=== PATIENT | male | born 1955 | race Caucasian/White ===

== ENCOUNTER → 2025-02-06 15:43 | Outpatient (CLI) | payer MEDICARE, MEDICAID, SELFPAY | LOC: WC 15:51 | PROVIDERS: Family Provider Family Medicine; PCP Family Medicine; Referring Provider Nurse Practitioner Family; Visit Provider Surgery | DX: E11.621 Type 2 diabetes mellitus with foot ulcer (principal); L97.512 Non-pressure chronic ulcer of other part of right foot with fat layer exposed; E11.42 Type 2 diabetes mellitus with diabetic polyneuropathy; I73.9 Peripheral vascular disease, unspecified; L84 Corns and callosities; F17.200 Nicotine dependence, unspecified, uncomplicated | CPT/HCPCS: 11042; 87070; 87075; 87077; 87186; 87205; 99204; 99214 ==

== ENCOUNTER → 2025-02-08 11:14 | Outpatient (CLI) | payer MEDICARE, MEDICAID, SELFPAY | PROVIDERS: Family Provider Family Medicine; PCP Family Medicine; Referring Provider Family Medicine; Visit Provider Surgery | DX: E11.621 Type 2 diabetes mellitus with foot ulcer (principal); L97.512 Non-pressure chronic ulcer of other part of right foot with fat layer exposed; L84 Corns and callosities | CPT/HCPCS: 99213 ==

== ENCOUNTER → 2025-02-09 14:34 | Outpatient (CLI) | payer MEDICARE, MEDICAID, SELFPAY | PROVIDERS: Family Provider Family Medicine; PCP Family Medicine; Referring Provider Family Medicine; Visit Provider Physician Assistant | DX: E11.621 Type 2 diabetes mellitus with foot ulcer (principal); L97.412 Non-pressure chronic ulcer of right heel and midfoot with fat layer exposed; L84 Corns and callosities | CPT/HCPCS: 99212 ==

== ENCOUNTER → 2025-02-12 12:00 | Outpatient (CLI) | payer MEDICARE, MEDICAID, SELFPAY ==
--- NOTE | 2025-02-12 12:12 | DI.RAD.S_ITS ---
PROCEDURE: XR FOOT RT MIN 3V INDICATIONS: eval for osteo, wound right foot TECHNIQUE: 3 views of the foot were acquired. COMPARISON: None. 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 Moderate degenerative changes tibiotalar, talonavicular, calcaneocuboid joints. Accessory ossicle on the lateral image adjacent to the cuboid commonly os peroneum or os cuboid M. 5 mm inferior calcaneal enthesophyte calcification. No gross radiographic evidence of osseous erosion or soft tissue gas to suggest osteomyelitis. No radiographic evidence of fracture or dislocation. Artifacts from overlying clothing or other extrinsic artifacts partially limit radiographic detail. IMPRESSION: Status post transmetatarsal amputation. Degenerative changes. No gross radiographic evidence of osseous erosion. If symptoms persist or worsen, or there is high clinical suspicion of osteomyelitis or other abnormality MRI could be performed Dictated by: Emerson Hill M.D. on 02/13/2025 at 12:56 Approved by: Emerson Hill M.D. on 02/13/2025 at 13:00
[2025-02-12 13:37] LABS: Add Manual Diff / Slide Review NO; Hematocrit 48.3 % (41-53); Hemoglobin 16.8 g/dL (13.5-17.5); Lymphocytes Absolute Auto 1900 /uL (1100-4500); Mean Corpuscular HGB Conc 34.8 % (30-36); Mean Corpuscular Hemoglobin 31.9 PG (26-34); Mean Corpuscular Volume 91.7 fL (80-100); Platelet Count 279 X10^3/uL (150-400)
[2025-02-12 13:47] LABS: Hemoglobin A1C% w Est Avg Glu 9.7 % (4.0-6.0)
[2025-02-12 14:07] LABS: Alanine Aminotransferase 71 IU/L (<50); Albumin 4.7 g/dL (3.5-5.0); Alkaline Phosphatase 112 U/L (38-126); Blood Urea Nitrogen 28 mg/dL (9-20); Carbon Dioxide 26 mmol/L (22-32); Chloride 100 mmol/L (98-107); Estimated Glomerular Filt Rate > 60 mL/min (>60); Glucose 182 mg/dL (70-99); HEMOLYSIS < 15 (0-50); Sodium 139 mmol/L (137-145)
[2025-02-12 14:09] LABS: Potassium 5.4 mmol/L (3.4-5.1)
[2025-02-12 14:13] LABS: Calcium 13.8 mg/dL (8.4-10.2)
[2025-02-12 14:21] LABS: Albumin Globulin Ratio 1.5 (1.0-2.8); Globulin 3.1 g/dL (1.7-4.1); Total Protein 7.8 g/dL (6.3-8.2)
== END ==
PROVIDERS: Family Provider Family Medicine; PCP Family Medicine; Referring Provider Surgery; Visit Provider Surgery
DX: E11.621 Type 2 diabetes mellitus with foot ulcer (principal); Z89.421 Acquired absence of other right toe(s)
CPT/HCPCS: 36415; 73630; 80053; 83036; 85025; 85651; 86140

== ENCOUNTER → 2025-02-12 12:00 | Outpatient (CLI) | payer MEDICARE, MEDICAID, SELFPAY | LOC: WC 12:02 | PROVIDERS: Family Provider Family Medicine; PCP Family Medicine; Referring Provider Family Medicine; Visit Provider Surgery | DX: E11.621 Type 2 diabetes mellitus with foot ulcer (principal); L97.412 Non-pressure chronic ulcer of right heel and midfoot with fat layer exposed; L84 Corns and callosities; E11.51 Type 2 diabetes mellitus with diabetic peripheral angiopathy without gangrene | CPT/HCPCS: 99212 ==

== ENCOUNTER 2025-02-12 16:09 | Observation (INO) | payer MEDICARE, MEDICAID, SELFPAY ==
[2025-02-12] VITALS (9 sets, daily range): BP systolic 129–155; BP diastolic 77–88; PULSE 65–118; RESP 20; TEMP 36.7; O2SAT 88–95; BMI 23.8
--- NOTE | 2025-02-12 17:01 | EKG_ITS ---
[address] [address] Test Date: 2025-02-12 Pat Name: Berlin Liang Department: [facility] Room: Gender: Male Rn Neonatal: IRMA : 1955 Requested By: Order Number: [id number] Reading MD: Nash Juarez Measurements Intervals [place] Rate: 111 P: 59 TN: 212 QRS: 38 QRSD: 74 T: 39 QT: 302 QTc: 410 Interpretive Statements Sinus tachycardia with 1st degree AV block Possible Inferior infarct , age undetermined Electronically Signed On 02-12-2025 18:55:52 PST by Nash Juarez
[2025-02-12 17:39] LABS: Add Manual Diff / Slide Review NO; Hematocrit 50.3 % (41-53); Hemoglobin 17.3 g/dL (13.5-17.5); Lymphocytes Absolute Auto 2500 /uL (1100-4500); Mean Corpuscular HGB Conc 34.4 % (30-36); Mean Corpuscular Hemoglobin 31.4 PG (26-34); Mean Corpuscular Volume 91.3 fL (80-100); Platelet Count 298 X10^3/uL (150-400)
[2025-02-12 17:53] LABS: Alanine Aminotransferase 76 IU/L (<50); Albumin 5.0 g/dL (3.5-5.0); Albumin Globulin Ratio 1.4 (1.0-2.8); Alkaline Phosphatase 106 U/L (38-126); Blood Urea Nitrogen 31 mg/dL (9-20); Carbon Dioxide 26 mmol/L (22-32); Chloride 100 mmol/L (98-107); Estimated Glomerular Filt Rate > 60 mL/min (>60); Globulin 3.5 g/dL (1.7-4.1); Glucose 176 mg/dL (70-99); HEMOLYSIS 15 (0-50); Potassium 4.7 mmol/L (3.4-5.1); Sodium 139 mmol/L (137-145); Total Protein 8.5 g/dL (6.3-8.2)
--- NOTE | 2025-02-12 17:59 | ED_ITS ---
HPI - Weakness General Chief complaint: Weakness Stated complaint: pc sent high bp Time Seen by Provider: 02/12/25 17:46 Source: patient Mode of arrival: Family Vehicle History of Present Illness HPI Narrative: This 69-year-old white male sent from a SNF because of abnormal labs. The patient himself has no acute complaints velocity of chronic complaints. Related Data Allergies Allergy/AdvReac Type Severity Reaction Status Date / Time No Known Drug Allergies Allergy Verified 02/12/25 16:36 Review of Systems Review of Systems Narrative: GENERAL: Denies chills, fatigue, malaise, fever, sweats. HEENT: Denies sinus pain, ear pain, sore throat, difficulty swallowing, dizziness. RESPIRATORY: Denies dyspnea, cough, wheezing, hemoptysis, sputum. CARDIOVASCULAR: Denies chest pain, palpitations, orthopnea, edema, GASTROINTESTINAL: Denies nausea, vomiting, abdominal pain, diarrhea, constipation, melena. : Denies dysuria, frequency, incontinence, hematuria, urinary retention. MUSCULOSKELETAL: denies weakness, joint pain, or bony pain SKIN: Denies rash, skin lesions, or other NEUROLOGIC: Denies weakness, headache, numbness, change in speech, confusion, seizures, incoordination. PSYCHIATRIC: No concerning psychosocial issues. 12 point review of systems is negative except for those stated above Patient History Social History Smoking Status: Current every day smoker Smoking Status: Current every day smoker tobacco type: cigarettes Exam Narrative Exam Narrative: GENERAL: 69 year old patient appears stated age. Well-developed patient, in mild distress. HEAD: Atraumatic. Normocephalic. EYES: Pupils equal round and reactive. Extraocular motions intact. No scleral icterus. No injection or drainage. ENT: Nose without bleeding, purulent drainage. Throat without erythema, tonsillar hypertrophy or exudate. Airway patent. NECK: Trachea midline. Non tender CARDIOVASCULAR: Regular rate and rhythm without murmurs, gallops, or rubs. RESPIRATORY: Clear to auscultation. Breath sounds equal bilaterally. No wheezes, rales, or rhonchi. GASTROINTESTINAL: Abdomen soft, non-tender, nondistended. EXTREMITIES: No edema or joint tenderness. BACK: Nontender without deformity or crepitance. No flank tenderness. NEURO: AOx3. SKIN: No rash or erythema of visible areas Initial Vital Signs Initial Vital Signs: Vital Signs Temperature 98.1 F 02/12/25 16:35 Pulse Rate 118 H 02/12/25 16:35 Respiratory Rate 20 02/12/25 16:35 Blood Pressure 129/77 02/12/25 16:35 Pulse Oximetry 95 02/12/25 16:35 Oxygen Delivery Method Room Air 02/12/25 16:35 Course Orders Ordered: ED Orders 02/12/25 17:01 EKG-12 Lead Stat 02/12/25 17:28 CBC Auto Diff [Complete Blood Count AUTO DIFF] Stat CMP [Comprehensive Metabolic Panel] Stat 02/12/25 17:58 Urinalysis and Microscopic Stat Lactated Ringer's (Lactated Ringers) 1,000 mls @ 1,000 mls/hr IV BOLUS ONE Stop: 02/12/25 18:58 Last Admin: 02/12/25 18:16 Dose: 1,000 mls/hr Lactated Ringer's (Lactated Ringers) 1,000 mls @ 1,000 mls/hr IV BOLUS ONE Stop: 02/12/25 19:11 Vital Signs Vital signs: Vital Signs - 8 hr 02/12/25 16:35 Temperature 98.1 F Pulse Rate 118 H Respiratory Rate 20 Blood Pressure 129/77 Pulse Oximetry 95 Oxygen Delivery Method Room Air MDM - Weakness Lab Data 02/12/25 17:28 02/12/25 17:28 Labs: Lab Results 02/12/25 Range/Units 17:28 WBC 11.0 (4.5-11.0) X10^3/uL RBC 5.51 (4.5-5.9) X10^6/uL Hgb 17.3 (13.5-17.5) g/dL Hct 50.3 (41-53) % MCV 91.3 (80-100) fL MCH 31.4 (26-34) PG MCHC 34.4 (30-36) % RDW 12.5 (11.6-14.8) % Plt Count 298 (150-400) X10^3/uL Neut % (Auto) 67.6 (50-75) % Lymph % (Auto) 23.0 L (25-40) % [place] % (Auto) 6.9 (3-14) % Eos % (Auto) 1.5 L (2-4) % Baso % (Auto) 1.0 (0-2) % Neut # (Auto) 7400 H (1581-5892) /uL Lymph # (Auto) 2500 (4547-3302) /uL [place] # (Auto) 800 (0-900) /uL Eos # (Auto) 200 (0-450) /uL Baso # (Auto) 100 (0-100) /uL Sodium 139 (137-145) mmol/L Potassium 4.7 (3.4-5.1) mmol/L Chloride 100 (98-107) mmol/L Carbon Dioxide 26 (22-32) mmol/L BUN 31 H (9-20) mg/dL Creatinine 1.25 (0.66-1.25) mg/dL Estimated GFR > 60 (>60) mL/min BUN/Creatinine Ratio 24.8 H (6-22) Glucose 176 H (70-99) mg/dL Calcium 14.3 H* (8.4-10.2) mg/dL Total Bilirubin 0.8 (0.2-1.3) mg/dL AST 62 H (17-59) IU/L ALT 76 H (<50) IU/L Alkaline Phosphatase 106 (38-126) U/L Total Protein 8.5 H (6.3-8.2) g/dL Albumin 5.0 (3.5-5.0) g/dL Globulin 3.5 (1.7-4.1) g/dL Albumin/Globulin Ratio 1.4 (1.0-2.8) MDM Narrative Medical decision making narrative: Patient had 12 lead EKG reveals sinus tachycardia at 111 beats per minute with a borderline first-degree AV block normal axis no blocks no acute changes no prolonged QTC. Patient had a CBC unremarkable white count 11.0 hemoglobin 17.3. Chemistry was remarkable for a glucose of 176 and a calcium of 14.3. In the emergency room patient was ordered 2 L of Ringer's lactate. The patient does have a calcium before T with a normal albumin and because they [facility] the [facility] the patient will have to be admitted for observation for fluid hydration and probable starting a bisphosphonate therapy I will speak to the hospitalist who admit the patient. Discharge Plan Departure Patient Disposition: Admitted as Observation Clinical Impression: Hypercalcemia, Generalized weakness, Dehydration
[2025-02-12 18:01] LABS: Calcium 14.3 mg/dL (8.4-10.2)
[2025-02-12] MEDS: LACTATED RINGERS 1,000 ML 1000 ML IV ×2 (18:16→20:14)
--- NOTE | 2025-02-12 18:57 | P.HP_ITS ---
History of Present Illness History of Present Illness Date Patient Seen: 02/12/25 Time Patient Seen: 18:57 Chief complaint: pc sent high bp Narrative: This is a 69-year-old male with diabetes mellitus, dementia, hypertension, seizure disorder and bladder cancer who presents with an asymptomatic calcium level of 14.3. He says that he just moved from [place] a few days ago to live at a local assisted living facility and was found on routine labs to have a high potassium and high calcium. In our ED the potassium is 4.7 and the calcium is 14.3. He is at baseline on 25 mcg of cholecalciferol daily along with 1000 mg of calcium carbonate daily. He has significant dementia, and is only oriented to his name, but does not think that he has ever been treated for or admitted for hypercalcemia before. His EKG does not show any significant changes. He will be receiving IV fluid and a follow up potassium/calcium level this evening. Assessment and plan: Hypercalcemia, present on admission. Active. -presenting calcium level of 14.3 likely related to daily vitamin-D/calcium supplementation. -begin treatment with IV fluid initially 1 L bolus and then 150 mL per hour of normal saline with follow up calcium level in 3 hours. -if calcium does not come down with initial treatment and holding the daily supplements then further treatment including pamidronate and further workup to rule out MM would be appropriate. Diabetes mellitus type 2, present on admission. Chronic. -lispro medium dose correctional scale -holding Lyumjev 25 units q.i.d. -continue Lantus 60 units q.a.m. -check A1c Hypertension, present on admission. Chronic. -lisinopril Hyperlipidemia, present on admission. Chronic. -Lipitor Seizure disorder, present on admission. Chronic. -continue Keppra Dementia, present on admission. Chronic. SCD for DVT prevention His sister is his apparent backup decision maker. [facility] Medical History (Updated 02/12/25 @ 19:07 by Olive Juarez MD) Osteoarthritis Dementia HLD (hyperlipidemia) HTN (hypertension) Diabetes mellitus Seizure Surgical History (Updated 02/12/25 @ 19:08 by Olive Juarez MD) History of transmetatarsal amputation of right foot Social History Smoking Status: Current every day smoker Comment: Significant dementia and lack of records from his facility limit social history and family history. Medication list: Cholecalciferol 25 mcg daily Loratadine 10 mg daily Magnesium glycinate 120 mg daily Meloxicam 7.5 mg daily Lisinopril 20 mg daily Levetiracetam 500 mg twice a day Doxycycline 100 mg twice a day Docusate 100 mg twice a day Benefiber 1 tablet daily Calcium carbonate 500 mg 2 tabs daily Lipitor 10 mg daily Lyumjev quick pen 25 units q.i.d. Lantus Solostar 60 units q.a.m. Meds Home Medications and Allergies Allergies Allergy/AdvReac Type Severity Reaction Status Date / Time No Known Drug Allergies Allergy Verified 02/12/25 16:36 Review of Systems Review of Systems Narrative: Positive for Memory loss and weakness Negative for fevers, chills, sweats, nausea, vomiting, abdominal pain, chest pain, coughing, dysuria, bleeding, rash. Exam Vital Signs (past 8 hours): - 02/12/25 16:35 Temperature 98.1 F Pulse Rate 118 H Respiratory Rate 20 Blood Pressure 129/77 Pulse Oximetry 95 Oxygen Delivery Method Room Air Oxygen Delivery Method Room Air Narrative Exam Narrative: He is alert and oriented to his name. He is unable to reliably discuss any further historical information. He readily admits that his memory is very poor. No apparent distress. Pupils are equally round reactive to light and accommodation. Extraocular muscles are intact. Sclerae are pink and nonicteric. Throat looks normal. No lymph nodes are felt head, neck, supraclavicular area. There is no thyromegaly. JVD is less than 6 cm. No carotid bruits heard. Heart is regular rate and rhythm without murmur. Lungs are clear to auscultation bilaterally. Abdomen is soft, bowel sounds positive, nontender, no organomegaly. Extremities have no ankle edema. Neurologic exam. Patient is very confused. Cranial nerves 2-12 test intact. Motor function is 4/5 throughout. There is no tremor. Skin has no rash. Objective Labs 02/12/25 17:28 02/12/25 17:28 Labs: Laboratory Results - last 24 hr 02/12/25 17:28 WBC 11.0 RBC 5.51 Hgb 17.3 Hct 50.3 MCV 91.3 MCH 31.4 MCHC 34.4 RDW 12.5 Plt Count 298 Neut % (Auto) 67.6 Lymph % (Auto) 23.0 L [place] % (Auto) 6.9 Eos % (Auto) 1.5 L Baso % (Auto) 1.0 Neut # (Auto) 7400 H Lymph # (Auto) 2500 [place] # (Auto) 800 Eos # (Auto) 200 Baso # (Auto) 100 Sodium 139 Potassium 4.7 Chloride 100 Carbon Dioxide 26 BUN 31 H Creatinine 1.25 Estimated GFR > 60 BUN/Creatinine Ratio 24.8 H Glucose 176 H Calcium 14.3 H* Total Bilirubin 0.8 AST 62 H ALT 76 H Alkaline Phosphatase 106 Total Protein 8.5 H Albumin 5.0 Globulin 3.5 Albumin/Globulin Ratio 1.4 Assessment & Plan Time-Based Coding :: [TOTAL MINUTES] spent with patient and on the chart (including review of chart, obtaining history, exam, reviewing outside data, placing orders, documenting exam and treatment plan, and counseling patient) on [DATE].
--- NOTE | 2025-02-12 19:41 | W.PC.EDHO ---
Report received from LISETTE Russo
[2025-02-12] MEDS: ATORVASTATIN 20 MG TABLET 10 MG PO (20:12)
[2025-02-12] MEDS: PANTOPRAZOLE DR 20 MG TABLET 40 MG PO (20:13)
--- NOTE | 2025-02-12 21:12 | PC.NURSE ---
Pt complains of bed and requests hospital bed. Steve contacted. No hospital beds available per Steve.
[2025-02-12] MEDS: SODIUM CHLORIDE 0.9% 1,000 ML 150 ML IV (23:57)
[2025-02-13] VITALS (11 sets, daily range): BP systolic 122–142; BP diastolic 60–80; PULSE 84–107; RESP 18; TEMP 36.8; O2SAT 88–100
[2025-02-13 03:32] LABS: Appearance Urine UA CLEAR; Bilirubin Urine UA NEGATIVE (NEGATIVE); Color Urine UA YELLOW; Glucose Urine UA NEGATIVE (Negative); Ketones Urine UA TRACE (NEGATIVE); Leukocyte Esterase Urine UA NEGATIVE (NEGATIVE); Nitrite Urine UA NEGATIVE (Negative); Occult Blood Urine UA 1+ (Negative); Protein Urine UA 1+ (Negative); Specific Gravity Urine UA 1.015 (1.000-1.035); Urobilinogen Urine UA 0.2 E.U./dL (0.2); pH Urine UA 7.0 (4.5-8.0)
[2025-02-13 04:09] LABS: Culture Indicated Urine Cult Not Indicated
--- NOTE | 2025-02-13 06:32 | PM.PN.1 ---
Subjective Subjective Date Patient Seen: 02/13/25 Interval history: This is a 69-year-old male with diabetes mellitus, dementia, hypertension, seizure disorder and bladder cancer who presents with an asymptomatic calcium level of 14.3. He says that he just moved from [place] a few days ago to live at a local assisted living facility and was found on routine labs to have a high potassium and high calcium. In our ED the potassium is 4.7 and the calcium is 14.3. He is at baseline on 25 mcg of cholecalciferol daily along with 1000 mg of calcium carbonate daily. He has significant dementia, and is only oriented to his name, but does not think that he has ever been treated for or admitted for hypercalcemia before. His EKG does not show any significant changes. He will be receiving IV fluid and a follow up potassium/calcium level this evening. Assessment and plan: Hypercalcemia, present on admission. Active. -presenting calcium level of 14.3 likely related to daily vitamin-D/calcium supplementation. -begin treatment with IV fluid initially 1 L bolus and then 150 mL per hour of normal saline with follow up calcium level in 3 hours. -if calcium does not come down with initial treatment and holding the daily supplements then further treatment including pamidronate and further workup to rule out MM would be appropriate. Diabetes mellitus type 2, present on admission. Chronic. -lispro medium dose correctional scale -holding Lyumjev 25 units q.i.d. -continue Lantus 60 units q.a.m. -check A1c Hypertension, present on admission. Chronic. -lisinopril Hyperlipidemia, present on admission. Chronic. -Lipitor Seizure disorder, present on admission. Chronic. -continue Keppra Dementia, present on admission. Chronic. SCD for DVT prevention His sister is his apparent backup decision maker. Exam Vital Signs (past 8 hours): - 02/13/25 00:02 02/13/25 00:03 02/13/25 00:03 Temperature Pulse Rate 107 H 104 H Respiratory Rate Blood Pressure 142/80 H Pulse Oximetry 94 93 Oxygen Delivery Method Room Air Room Air 02/13/25 00:07 02/13/25 00:30 02/13/25 00:30 Temperature 98.2 F Pulse Rate 102 H 101 H Respiratory Rate 18 Blood Pressure 142/80 H 122/60 Pulse Oximetry 94 88 L Oxygen Delivery Method Room Air 02/13/25 01:00 02/13/25 03:17 02/13/25 03:42 Temperature Pulse Rate 92 H Respiratory Rate Blood Pressure Pulse Oximetry 97 100 91 Oxygen Delivery Method Room Air Room Air Room Air 02/13/25 04:00 02/13/25 04:30 02/13/25 05:17 Temperature Pulse Rate 87 84 97 H Respiratory Rate Blood Pressure Pulse Oximetry 91 93 91 Oxygen Delivery Method Room Air Room Air Room Air 02/13/25 05:18 02/13/25 05:18 Temperature Pulse Rate 96 H Respiratory Rate Blood Pressure 129/73 Pulse Oximetry 91 Oxygen Delivery Method Room Air Oxygen Delivery Method Room Air Objective Labs 02/12/25 17:28 02/13/25 06:30 Labs: Laboratory Results - last 24 hr 02/12/25 02/12/25 02/13/25 17:28 20:36 01:30 WBC 11.0 RBC 5.51 Hgb 17.3 Hct 50.3 MCV 91.3 MCH 31.4 MCHC 34.4 RDW 12.5 Plt Count 298 Neut % (Auto) 67.6 Lymph % (Auto) 23.0 L [place] % (Auto) 6.9 Eos % (Auto) 1.5 L Baso % (Auto) 1.0 Neut # (Auto) 7400 H Lymph # (Auto) 2500 [place] # (Auto) 800 Eos # (Auto) 200 Baso # (Auto) 100 Sodium 139 Potassium 4.7 Chloride 100 Carbon Dioxide 26 BUN 31 H Creatinine 1.25 Estimated GFR > 60 BUN/Creatinine Ratio 24.8 H Glucose 176 H POC Whole Bld Glucose 108 H Calcium 14.3 H* Total Bilirubin 0.8 AST 62 H ALT 76 H Alkaline Phosphatase 106 Total Protein 8.5 H Albumin 5.0 Globulin 3.5 Albumin/Globulin Ratio 1.4 Urine Color Yellow Urine Appearance Clear Urine pH 7.0 Ur Specific [place] 1.015 Urine Protein 1+ H Urine Glucose (UA) Negative Urine Ketones Trace H Urine Occult Blood 1+ H Urine Nitrate Negative Urine Bilirubin Negative Urine Urobilinogen 0.2 Ur Leukocyte Esterase Negative Urine RBC 1-5/hpf Urine WBC 0-1/hpf Ur Squamous Epith Cells None seen Urine Bacteria None seen Ur Culture Indicated? Cult not indicated Vol Urine Centrifuged 10ml (spun) [facility] Medical History (Updated 02/12/25 @ 19:07 by Olive Juarez MD) Osteoarthritis Dementia HLD (hyperlipidemia) HTN (hypertension) Diabetes mellitus Seizure Surgical History (Updated 02/12/25 @ 19:08 by Olive Juarez MD) History of transmetatarsal amputation of right foot Social History Smoking Status: Current every day smoker Assessment & Plan Time-Based Coding :: [TOTAL MINUTES] spent with patient and on the chart (including review of chart, obtaining history, exam, reviewing outside data, placing orders, documenting exam and treatment plan, and counseling patient) on [DATE].
[2025-02-13 06:48] LABS: Blood Urea Nitrogen 29 mg/dL (9-20); Carbon Dioxide 31 mmol/L (22-32); Chloride 100 mmol/L (98-107); Estimated Glomerular Filt Rate > 60 mL/min (>60); Glucose 106 mg/dL (70-99); HEMOLYSIS 19 (0-50); Potassium 4.5 mmol/L (3.4-5.1); Sodium 140 mmol/L (137-145)
[2025-02-13 06:54] LABS: Calcium 13.4 mg/dL (8.4-10.2)
--- NOTE | 2025-02-13 06:55 | ED.CALLS ---
Critical Calcium 13.4 (from 02/12/25 @2100) just called in from lab. Dr. Johnson notified.
[2025-02-13 07:20] LABS: Alanine Aminotransferase 49 IU/L (<50); Albumin 3.6 g/dL (3.5-5.0); Albumin Globulin Ratio 1.3 (1.0-2.8); Alkaline Phosphatase 76 U/L (38-126); Blood Urea Nitrogen 26 mg/dL (9-20); Calcium 11.6 mg/dL (8.4-10.2); Carbon Dioxide 28 mmol/L (22-32); Chloride 104 mmol/L (98-107); Estimated Glomerular Filt Rate > 60 mL/min (>60); Globulin 2.8 g/dL (1.7-4.1); Glucose 141 mg/dL (70-99); HEMOLYSIS 15 (0-50); Potassium 4.4 mmol/L (3.4-5.1); Sodium 139 mmol/L (137-145); Total Protein 6.4 g/dL (6.3-8.2)
[2025-02-13] MEDS: NICOTINE 21 MG PATCH TOP (08:42)
[2025-02-13] MEDS: INSULIN GLARGINE 100 UNIT/ML 3ML PEN 60 UNIT SUBCUT (09:23)
[2025-02-13] MEDS: INSULIN LISPRO 100 UNIT/ML 3ML VIAL 8 UNIT SUBCUT (10:42)
--- NOTE | 2025-02-13 10:45 | P.DS_ITS ---
History of Present Illness History of Present Illness Date Patient Seen: 02/13/25 Time Patient Seen: 10:45 Chief complaint: pc sent high bp Narrative: This is a 69-year-old male with diabetes mellitus, dementia, hypertension, seizure disorder and bladder cancer who presents with an asymptomatic calcium level of 14.3. He says that he just moved from [place] a few days ago to live at a local assisted living facility and was found on routine labs to have a high potassium and high calcium. In our ED the potassium is 4.7 and the calcium is 14.3. He is at baseline on 25 mcg of cholecalciferol daily along with 1000 mg of calcium carbonate daily. He has significant dementia, and is only oriented to his name, but does not think that he has ever been treated for or admitted for hypercalcemia before. His EKG does not show any significant changes. He will be receiving IV fluid and a follow up potassium/calcium level this evening. Discharge Providers Provider Date of admission: 02/12/25 21:24 Discharge Date: 02/13/25 Primary care physician: Denise Marques DO Discharge provider: Olive Juarez MD Summary Hospital Course Hospital Course: Hypercalcemia apparently secondary to excessive use of calcium carbonate (Tums) and vitamin-D. -presenting calcium level of 14.3 likely related to daily vitamin-D/calcium supplementation. Patient is an unreliable historian but states that he takes in excess of 20 Tums per day for heartburn. -treated with IV fluid initially 1 L bolus and then 150 mL per hour of normal saline with follow up calcium level in 3 hours that came down to 13.4. Follow up calcium level this morning is now down to 11.6. -advised Protonix and Mylanta instead of Tums. -follow up BMP in 3 days. If calcium continues to remain high then consider workup for multiple myeloma etc.. Probable GERD -change from Tums to Mylanta as needed and begin daily Protonix. Diabetes mellitus type 2 -lispro medium dose correctional scale -resume home Lyumjev 25 units q.i.d. -continue Lantus 60 units q.a.m. -check A1c: 9.7 Hypertension -lisinopril Hyperlipidemia -Lipitor Seizure disorder -continue Keppra Dementia Status at Discharge Cognitive/behavioral status at discharge: at baseline, confused Functional status at discharge: uses cane/walker Overall status at discharge: patient is back to baseline Time Spent with Patient Time spent: Greater than 30 minutes Exam Vital Signs (past 8 hours): - 02/13/25 03:17 02/13/25 03:42 02/13/25 04:00 Pulse Rate 92 H 87 Blood Pressure Pulse Oximetry 100 91 91 Oxygen Delivery Method Room Air Room Air Room Air 02/13/25 04:30 02/13/25 05:17 02/13/25 05:18 Pulse Rate 84 97 H Blood Pressure 129/73 Pulse Oximetry 93 91 Oxygen Delivery Method Room Air Room Air 02/13/25 05:18 Pulse Rate 96 H Blood Pressure Pulse Oximetry 91 Oxygen Delivery Method Room Air Oxygen Delivery Method Room Air Narrative Exam Narrative: He is now alert and interactive, appearing rested and somewhat less confused than yesterday. Heart is regular rate and rhythm without murmur. Lungs are clear to auscultation bilaterally. Extremities have no ankle edema. Objective Labs 02/12/25 17:28 02/13/25 06:30 Labs: Laboratory Results - last 24 hr 02/12/25 02/12/25 02/12/25 17:28 20:36 21:00 WBC 11.0 RBC 5.51 Hgb 17.3 Hct 50.3 MCV 91.3 MCH 31.4 MCHC 34.4 RDW 12.5 Plt Count 298 Neut % (Auto) 67.6 Lymph % (Auto) 23.0 L [place] % (Auto) 6.9 Eos % (Auto) 1.5 L Baso % (Auto) 1.0 Neut # (Auto) 7400 H Lymph # (Auto) 2500 [place] # (Auto) 800 Eos # (Auto) 200 Baso # (Auto) 100 Sodium 139 140 Potassium 4.7 4.5 Chloride 100 100 Carbon Dioxide 26 31 BUN 31 H 29 H Creatinine 1.25 1.16 Estimated GFR > 60 > 60 BUN/Creatinine Ratio 24.8 H 25.0 H Glucose 176 H 106 H POC Whole Bld Glucose 108 H Calcium 14.3 H* 13.4 H* Total Bilirubin 0.8 AST 62 H ALT 76 H Alkaline Phosphatase 106 Total Protein 8.5 H Albumin 5.0 Globulin 3.5 Albumin/Globulin Ratio 1.4 Urine Color Urine Appearance Urine pH Ur Specific Sunset Urine Protein Urine Glucose (UA) Urine Ketones Urine Occult Blood Urine Nitrate Urine Bilirubin Urine Urobilinogen Ur Leukocyte Esterase Urine RBC Urine WBC Ur Squamous Epith Cells Urine Bacteria Ur Culture Indicated? Vol Urine Centrifuged 02/13/25 02/13/25 02/13/25 01:30 06:30 08:36 WBC RBC Hgb Hct MCV MCH MCHC RDW Plt Count Neut % (Auto) Lymph % (Auto) [place] % (Auto) Eos % (Auto) Baso % (Auto) Neut # (Auto) Lymph # (Auto) [place] # (Auto) Eos # (Auto) Baso # (Auto) Sodium 139 Potassium 4.4 Chloride 104 Carbon Dioxide 28 BUN 26 H Creatinine 1.11 Estimated GFR > 60 BUN/Creatinine Ratio 23.4 H Glucose 141 H POC Whole Bld Glucose 131 H Calcium 11.6 H Total Bilirubin 0.8 AST 40 ALT 49 Alkaline Phosphatase 76 Total Protein 6.4 Albumin 3.6 Globulin 2.8 Albumin/Globulin Ratio 1.3 Urine Color Yellow Urine Appearance Clear Urine pH 7.0 Ur Specific Sunset 1.015 Urine Protein 1+ H Urine Glucose (UA) Negative Urine Ketones Trace H Urine Occult Blood 1+ H Urine Nitrate Negative Urine Bilirubin Negative Urine Urobilinogen 0.2 Ur Leukocyte Esterase Negative Urine RBC 1-5/hpf Urine WBC 0-1/hpf Ur Squamous Epith Cells None seen Urine Bacteria None seen Ur Culture Indicated? Cult not indicated Vol Urine Centrifuged 10ml (spun) 02/13/25 10:25 WBC RBC Hgb Hct MCV MCH MCHC RDW Plt Count Neut % (Auto) Lymph % (Auto) [place] % (Auto) Eos % (Auto) Baso % (Auto) Neut # (Auto) Lymph # (Auto) [place] # (Auto) Eos # (Auto) Baso # (Auto) Sodium Potassium Chloride Carbon Dioxide BUN Creatinine Estimated GFR BUN/Creatinine Ratio Glucose POC Whole Bld Glucose 280 H D Calcium Total Bilirubin AST ALT Alkaline Phosphatase Total Protein Albumin Globulin Albumin/Globulin Ratio Urine Color Urine Appearance Urine pH Ur Specific Sunset Urine Protein Urine Glucose (UA) Urine Ketones Urine Occult Blood Urine Nitrate Urine Bilirubin Urine Urobilinogen Ur Leukocyte Esterase Urine RBC Urine WBC Ur Squamous Epith Cells Urine Bacteria Ur Culture Indicated? Vol Urine Centrifuged [facility], [facility] Medical History (Updated 02/12/25 @ 19:07 by Olive Juarez MD) Osteoarthritis Dementia HLD (hyperlipidemia) HTN (hypertension) Diabetes mellitus Seizure Surgical History (Updated 02/12/25 @ 19:08 by Olive Juarez MD) History of transmetatarsal amputation of right foot Social History Smoking Status: Current every day smoker Discharge Plan Discharge Plan Patient Disposition: Home Provider Discharge Comment: Follow up with PCP in 1 week. Don't take Tums, Calcium or Vitamin D. Resume all other home medicines. Do another BMP in 3 days. Discharge orders & Medications Prescriptions: New insulin glargine [Lantus Solostar U-100 Insulin] 100 unit/mL (3 mL) Insulin Pen 60 unit SUBCUT DAILYCC Qty: 15 0RF pantoprazole 20 mg Tablet,Delayed Release (Dr/Ec) 40 mg PO NOW Qty: 90 0RF levetiracetam 250 mg Tablet 500 mg PO BID Qty: 180 0RF Mylanta Coat-Cool 1,200 mg-270 mg -80 mg/10 mL suspension 15 ml PO .Q4 hours prn Qty: 355 0RF Follow up/Referrals: Denise Marques DO [Primary Care Provider, Family Practice] Visit Report/Discharge Packet Stand Alone Forms: Patient Portal/API, Stroke Signs & Symptoms Discharge Data Primary Care Provider: Denise Marques Attending Provider: Olive Juarez Admit Date/Time: 02/12/25 21:24
--- NOTE | 2025-02-13 11:00 | CM.DPNOTE ---
DCP note EDGER TECHNICIAN got request from provider to coordinate dc back from ED. EDGER TECHNICIAN faxed information to [facility]. EDGER TECHNICIAN spoke with Linette at [facility], can accept pt back, EDGER TECHNICIAN requested 11:15 fruit or nut picker. EDGER TECHNICIAN brought scripts down to ED, handed them to Raysa ADAMSON. EDGER TECHNICIAN updated LISETTE Duval. P: DC back to [facility] today. 11:15 p/u. will continue to follow as needed for DCP Coordination ANA CRISTINA Hernandez
--- NOTE | 2025-02-13 11:43 | PC.NURSE ---
Attempted to call report 3 times to [facility] emergency department living. No answer all three times
--- NOTE | 2025-02-13 13:43 | PC.NURSE ---
Patient discharged by acute care nurse. See AC chart.
== END 2025-02-13 11:32 ==
LOC: ED 18:31 → AC 21:24
PROVIDERS: Admitting Provider Family Medicine; Emergency Provider Emergency Medicine; Family Provider Family Medicine; PCP Family Medicine; Visit Provider Family Medicine
DX: E83.52 Hypercalcemia (principal); R53.1 Weakness; E86.0 Dehydration; E11.9 Type 2 diabetes mellitus without complications; F03.90 Unspecified dementia, unspecified severity, without behavioral disturbance, psychotic disturbance, mood disturbance, and anxiety; I10 Essential (primary) hypertension; E78.5 Hyperlipidemia, unspecified; G40.909 Epilepsy, unspecified, not intractable, without status epilepticus; Z79.4 Long term (current) use of insulin; F17.210 Nicotine dependence, cigarettes, uncomplicated; Z85.51 Personal history of malignant neoplasm of bladder; E11.621 Type 2 diabetes mellitus with foot ulcer; Z89.421 Acquired absence of other right toe(s)
CPT/HCPCS: 36415; 73630; 80048; 80053; 81001; 82962; 83036; 85025; 85651; 86140; 93005; 96360; 96361; 96372; 99284; G0378; J1815; J7030; J7120

== ENCOUNTER → 2025-02-14 15:06 | Outpatient (CLI) | payer MEDICARE, MEDICAID, SELFPAY | LOC: WC 15:11 | PROVIDERS: Family Provider Family Medicine; PCP Family Medicine; Referring Provider Massage Therapist; Visit Provider Surgery | DX: E11.51 Type 2 diabetes mellitus with diabetic peripheral angiopathy without gangrene (principal); E11.621 Type 2 diabetes mellitus with foot ulcer; L97.512 Non-pressure chronic ulcer of other part of right foot with fat layer exposed; L84 Corns and callosities; F17.210 Nicotine dependence, cigarettes, uncomplicated | CPT/HCPCS: 11042 ==

== ENCOUNTER → 2025-02-16 09:31 | Outpatient (CLI) | payer MEDICARE, MEDICAID, SELFPAY | PROVIDERS: Family Provider Family Medicine; PCP Family Medicine; Referring Provider Family Medicine; Visit Provider Physician Assistant | DX: E11.621 Type 2 diabetes mellitus with foot ulcer (principal); L97.422 Non-pressure chronic ulcer of left heel and midfoot with fat layer exposed; L84 Corns and callosities | CPT/HCPCS: 99212 ==

== ENCOUNTER → 2025-02-16 09:44 | Outpatient (CLI) | payer MEDICARE, MEDICAID, SELFPAY ==
[2025-02-16 11:17] LABS: Blood Urea Nitrogen 16 mg/dL (9-20); Calcium 10.0 mg/dL (8.4-10.2); Carbon Dioxide 28 mmol/L (22-32); Chloride 103 mmol/L (98-107); Estimated Glomerular Filt Rate > 60 mL/min (>60); Glucose 137 mg/dL (70-99); HEMOLYSIS < 15 (0-50); Potassium 4.0 mmol/L (3.4-5.1); Sodium 141 mmol/L (137-145)
== END ==
PROVIDERS: Family Provider Family Medicine; PCP Family Medicine; Referring Provider Surgery; Visit Provider Surgery
DX: E83.52 Hypercalcemia (principal)
CPT/HCPCS: 36415; 80048

== ENCOUNTER → 2025-02-19 11:22 | Outpatient (CLI) | payer MEDICARE, MEDICAID, SELFPAY ==
--- NOTE | 2025-02-19 12:15 | DI.US.S_ITS ---
PROCEDURE: US ARTERIAL DUPLEX LE RT INDICATIONS: eval arterial status TECHNIQUE: Color and pulse Doppler interrogation was performed of the right lower extremity arterial system, with image documentation. COMPARISON: None. FINDINGS: Common femoral artery: 106 cm/sec, with biphasic flow. Deep femoral artery: 82 cm/sec, with biphasic flow. Proximal superficial femoral artery: 82 cm/sec, with biphasic flow. Mid superficial femoral artery: 212 cm/sec, with biphasic flow. Distal superficial femoral artery: 66 cm/sec, with biphasic flow. Popliteal artery: 51 cm/sec, with biphasic flow. Posterior tibial artery: 12 cm/sec, with monophasic flow. Anterior tibial artery/dorsalis pedis: 60 cm/sec, with biphasic flow. Valdes-scale imaging description: Mild degree of plaque throughout the right lower extremity arterial system. Diffuse calcified plaque involving the tibial arteries. IMPRESSION: 1. Elevated velocity involving the right mid SFA suggestive of 50-99% stenosis. 2. Dampened waveform and diffuse monophasic signals throughout the right posterior tibial artery suggestive of diffuse disease. Dictated by: Isidro Calderon M.D. on 02/21/2025 at 9:14 Approved by: Isidro Calderon M.D. on 02/21/2025 at 9:16
== END ==
LOC: US 11:23
PROVIDERS: Family Provider Family Medicine; PCP Family Medicine; Referring Provider Family Medicine; Visit Provider Surgery
DX: E11.621 Type 2 diabetes mellitus with foot ulcer (principal)
CPT/HCPCS: 93926

== ENCOUNTER → 2025-02-21 13:28 | Outpatient (CLI) | payer MEDICARE, MEDICAID, SELFPAY | LOC: WC 13:30 | PROVIDERS: Family Provider Family Medicine; PCP Family Medicine; Referring Provider Nurse Practitioner Family; Visit Provider Surgery | DX: E11.621 Type 2 diabetes mellitus with foot ulcer (principal); E11.42 Type 2 diabetes mellitus with diabetic polyneuropathy; L97.412 Non-pressure chronic ulcer of right heel and midfoot with fat layer exposed; L84 Corns and callosities; E11.51 Type 2 diabetes mellitus with diabetic peripheral angiopathy without gangrene | CPT/HCPCS: 11042 ==

== ENCOUNTER → 2025-03-07 16:07 | Outpatient (CLI) | payer MEDICARE, MEDICAID, SELFPAY | LOC: WC 16:12 | PROVIDERS: Family Provider Family Medicine; PCP Family Medicine; Referring Provider Family Medicine; Visit Provider Surgery | DX: E11.621 Type 2 diabetes mellitus with foot ulcer (principal); E11.42 Type 2 diabetes mellitus with diabetic polyneuropathy; E11.51 Type 2 diabetes mellitus with diabetic peripheral angiopathy without gangrene; L97.412 Non-pressure chronic ulcer of right heel and midfoot with fat layer exposed; L84 Corns and callosities; F17.210 Nicotine dependence, cigarettes, uncomplicated | CPT/HCPCS: 11042; 99213 ==